=== PATIENT | female | born 1955 | race Asian ===

== ENCOUNTER 2017-05-20 08:06 | Emergency (ER) | payer OTHER ==
[~2017-05-20] VITALS: Ht 154.9 cm; Wt 74.8 kg
[2017-05-20 10:08] VITALS: BP 150/84
== END 2017-05-20 12:07 | disposition home or self-care (01) ==
LOC: ED 08:06
DX: K59.00 Constipation, unspecified (principal); K64.4 Residual hemorrhoidal skin tags; E66.01 Morbid (severe) obesity due to excess calories
CPT/HCPCS: J1885; J3010; Q0162